=== PATIENT | male | born 1950 | race Caucasian/White ===

== ENCOUNTER → 2023-08-14 | Outpatient (CLI) | payer MEDICARE ==
[2023-08-14 13:07] LABS: CHOLESTEROL 162 mg/dL (<200); HDL CHOLESTEROL 69 mg/dL (29-71); LDL DIRECT 69 mg/dL (0-99); TRIGLYCERIDES 115 mg/dL (30-200)
[2023-08-14 13:39] LABS: HEMOGLOBIN A1C 5.3 % (4.0-6.0)
== END | disposition home or self-care (01) ==
LOC: LAB 09:52
PROVIDERS: ATTEND Student in an Organized Health Care Education/Training Program
DX: I25.10 Atherosclerotic heart disease of native coronary artery without angina pectoris (principal); E78.5 Hyperlipidemia, unspecified; Z79.899 Other long term (current) drug therapy
CPT/HCPCS: 36415; 80061; 83036

== ENCOUNTER → 2023-09-19 | Outpatient (CLI) | payer MEDICARE | END | disposition home or self-care (01) | LOC: EDUNIT# 08:00 → SHCH 08:21 | PROVIDERS: ATTEND Student in an Organized Health Care Education/Training Program | DX: I25.10 Atherosclerotic heart disease of native coronary artery without angina pectoris (principal); E78.5 Hyperlipidemia, unspecified; I10 Essential (primary) hypertension; Z98.61 Coronary angioplasty status | CPT/HCPCS: 93306 ==